=== PATIENT | female | born 1965 | race Two or more races ===

== ENCOUNTER → 2017-03-18 | Outpatient (CLI) | payer MEDICARE, MEDICAID ==
--- NOTE | 2017-03-18 15:39 | RADRPT ---
PROCEDURE: XR Left Hip and pelvis. CLINICAL INDICATION: Left hip pain. Pelvic pain. TECHNIQUE: Two views. Frontal pelvis and lateral left hip. COMPARISON: No prior studies are available for comparison. FINDINGS: There is no fracture or dislocation. The soft tissues are normal. The right hip is normal. The left hip is grossly abnormal with chronic dislocation and pseudoarthro sis. The left femoral head is markedly deformed. There is no lytic or blastic lesion. There is no radiopaque foreign body. IMPRESSION: 1. Normal right hip. 2. 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 Markedly deformed left femoral head. RPTAT: QQ .Jonathon Garcia MD, MD Date Time Electronically viewed and signed by .Jonathon Garcia MD, MD on 03/18/2017 15:39 .R/
== END | disposition home or self-care (01) ==
LOC: HKI 14:53
DX: M25.552 Pain in left hip (principal); R10.2 Pelvic and perineal pain
CPT/HCPCS: 73502; G0463